=== PATIENT | male | born 1975 | race Caucasian/White ===

== ENCOUNTER 2016-03-14 07:02 | Emergency (ER) | payer BC ==
[2016-03-14] MEDS ORDERED: METOCLOPRAMIDE 10 MG/2 ML VIAL ONE (08:02)
[2016-03-14] MEDS ORDERED: DIPHENHYDRAMINE 50 MG/ML VIAL ONE (08:03)
[2016-03-14] MEDS ORDERED: KETOROLAC 30 MG/ML VIAL ONE (08:03)
== END 2016-03-14 09:48 | disposition home or self-care (01) ==
LOC: ER 07:02
DX: S16.1XXA Strain of muscle, fascia and tendon at neck level, initial encounter (principal); R51 Headache
CPT/HCPCS: 36415; 70450; 72125; 80053; 85025; 85652; 96374; 96375